=== PATIENT | male | born 1990 | race African-American/Black ===

== ENCOUNTER 2018-06-10 21:24 | Emergency (ER) | payer OTHER ==
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
[2018-06-10] MEDS ORDERED: Ketorolac 30 MG/ML SDV IVPUSH SCH (23:30)
--- NOTE | 2018-06-11 07:03 | CR ---
Chest: Frontal view of the chest was obtained and supine projection. Heart size and mediastinum are normal. Lungs are clear. Bony structures are grossly intact. Impression: 1. Nothing acute is appreciated on supine chest x-ray. Diagnostic code #1
--- NOTE | 2018-06-11 08:51 | CT ---
CT cervical spine Technique: Multiple axial sections were obtained from above C1 inferiorly to the mid to lower T2 level. Reconstructed sagittal and coronal images were reviewed. Comparison: No prior cervical spine imaging is available. Findings: Vertebral body heights and disc spaces are maintained. Vertebral bodies and posterior arches are intact with no fracture being seen. No bony central or bony neural foraminal stenosis is seen. Scoliosis and kyphosis are present. Impression: 1. Kyphosis and scoliosis. Please correlate if patient has spasm. 2. No acute bony abnormality is identified. Diagnostic code #3 I agree with preliminary report issued by [facility] ([facility] report finalized on 06/11/18, 12:28 AM Central Time)
== END 2018-06-10 23:54 | disposition home or self-care (01) ==
LOC: JD.ED 21:24
DX: S16.1XXA Strain of muscle, fascia and tendon at neck level, initial encounter (principal); V47.5XXA Car driver injured in collision with fixed or stationary object in traffic accident, initial encounter
CPT/HCPCS: 36415; 71045; 72125; 80306; 85025; 96374; 99285; G0480; J1885

== ENCOUNTER 2018-06-13 10:31 | Emergency (ER) | payer OTHER ==
[2018-06-13] MEDS ORDERED: Ondansetron 4 MG/2 ML SDV IVPUSH ONE (11:01)
[2018-06-13] MEDS ORDERED: Sodium Chloride 0.9% 10 ML Syringe FLUSH PRN ×2 (11:01→12:42)
[2018-06-13] MEDS ORDERED: Sodium Chloride 0.9% 1,000 ML IV STA (11:01)
[2018-06-13] MEDS ORDERED: Diatrizoate Meglumine/Diatrizoate Sodium 37% 120 ML Bottle PO ONE (12:42)
[2018-06-13] MEDS ORDERED: Iopamidol 612 MG/ML 150 ML Bottle IVPUSH ONE (12:42)
--- NOTE | 2018-06-13 13:02 | EDM.PDOC ---
ED HPI GENERAL MEDICAL PROBLEM - General Chief Complaint: Gastrointestinal Problem Stated Complaint: NAUSEA/WEAKNESS Time Seen by Provider: 06/13/18 10:46 Source of Information: Reports: Patient History Limitations: Reports: No Limitations - History of Present Illness INITIAL COMMENTS - FREE TEXT/NARRATIVE: The patient presents with nausea, decreased appetite and abdominal pain. This has been going on for over a month. He has lost weight. He has never vomited but he is nauseated. He has no appetite and because of the nausea he cannot eat. He has no fever, chills, cough, chest pain, shortness of breath, dysuria or hematura. He has no diarrhea. He still has a gallbladder and appendix. He did not eat any bad food and he was not around anyone who is sick. Onset: Gradual Duration: Week(s): (4) Location: Reports: Abdomen Quality: Reports: Sharp Severity: Moderate Improves with: Reports: None Worsens with: Reports: None Associated Symptoms: Reports: Nausea/Vomiting. Denies: Chest Pain, Cough, Fever /Chills, Headaches, Shortness of Breath Epigastric Pain Score (Numeric/FACES): 8 - Related Data Allergies Allergy/AdvReac Type Severity Reaction Status Date / Time No Known Allergies Allergy Verified 06/13/18 10:46 Home Meds: Home Meds Ondansetron [Zofran ODT] 4 mg PO Q6H PRN #20 tab.dis 06/13/18 [Rx] Past Medical History - Past Health History Medical/Surgical History: Denies Medical/Surgical History Social & Family History - Tobacco Use Smoking Status *Q: Never Smoker - Caffeine Use Caffeine Use: Reports: None - Recreational Drug Use Recreational Drug Use: No ED ROS GENERAL - Review of Systems Review Of Systems: See Below Constitutional: Reports: No Symptoms HEENT: Reports: No Symptoms Respiratory: Reports: No Symptoms Cardiovascular: Reports: No Symptoms Endocrine: Reports: No Symptoms GI/Abdominal: Reports: Abdominal Pain, Nausea. Denies: Diarrhea, Vomiting : Reports: No Symptoms Musculoskeletal: Reports: No Symptoms Skin: Reports: No Symptoms ED EXAM, GI/ABD - Physical Exam Exam: See Below Exam Limited By: No Limitations General Appearance: Alert, No Apparent Distress Ears: Normal External Exam Nose: Normal Inspection Head: Atraumatic, Normocephalic Neck: Normal Inspection Respiratory/Chest: No Respiratory Distress, Lungs Clear, Normal Breath Sounds Cardiovascular: Regular Rate, Rhythm, No Edema, No Murmur GI/Abdominal Exam: Soft, No Organomegaly, No Mass, Tender (Mild to moderate pain to the mid abdomen) Course - Vital Signs Last Recorded V/S: Last Vital Signs Temp 97.1 F 06/13/18 10:41 Pulse 90 06/13/18 10:41 Resp 16 06/13/18 10:41 BP 121/90 06/13/18 10:41 Pulse Ox 100 06/13/18 10:41 - Orders/Labs/Meds Orders: Active Orders 24 hr Category Date Time Status Peripheral IV Care [RC] . DIRECTED Care 06/13/18 11:02 Active Abdomen Pelvis w Cont [CT] Stat Exams 06/13/18 11:01 Taken UA W/MICROSCOPIC [URIN] Stat Lab 06/13/18 11:01 Stop Req Sodium Chloride 0.9% [Saline Flush] Med 06/13/18 11:01 Active 10 ml FLUSH ASDIRECTED PRN Sodium Chloride 0.9% [Saline Flush] Med 06/13/18 12:42 Active 10 ml FLUSH ONETIME PRN ED Antiemetic Medication Reflex [OM.PC] Stat Oth 06/13/18 11:02 Ordered Peripheral IV Insertion Adult [OM.PC] Stat Oth 06/13/18 11:01 Ordered Medication Orders Sodium Chloride (Saline Flush) 10 ml FLUSH ASDIRECTED PRN PRN Reason: Keep Vein Open Last Admin: 06/13/18 11:29 Dose: 10 ml Sodium Chloride (Saline Flush) 10 ml FLUSH ONETIME PRN PRN Reason: IV FLUSH Last Admin: 06/13/18 12:53 Dose: 10 ml Labs: Laboratory Tests 06/13/18 06/13/18 Range/Units 10:52 10:52 WBC 5.52 (4.23-9.07) K/mm3 RBC 5.91 (4.63-6.08) M/mm3 Hgb 16.5 (13.7-17.5) gm/L Hct 48.5 (40.1-51.0) % MCV 82.1 (79.0-92.2) fl MCH 27.9 (25.7-32.2) pg MCHC 34.0 (32.2-35.5) g/dl RDW Std Deviation 39.0 (35.1-43.9) fL Plt Count 215 (163-337) K/mm3 MPV 9.7 (9.4-12.3) fl Neut % (Auto) 77.9 H (34.0-67.9) % Lymph % (Auto) 14.5 L (21.8-53.1) % [place] % (Auto) 7.2 (5.3-12.2) % Eos % (Auto) 0.2 L (0.8-7.0) Baso % (Auto) 0.2 (0.1-1.2) % Neut # (Auto) 4.30 (1.78-5.38) K/mm3 Lymph # (Auto) 0.80 L (1.32-3.57) K/mm3 [place] # (Auto) 0.40 (0.30-0.82) K/mm3 Eos # (Auto) 0.01 L (0.04-0.54) K/mm3 Baso # (Auto) 0.01 (0.01-0.08) K/mm3 Sodium 139 (136-145) mEq/L Potassium 3.8 (3.5-5.1) mEq/L Chloride 102 (98-107) mEq/L Carbon Dioxide 21 (21-32) mEq/L Anion Gap 19.8 H (5-15) BUN 20 H (7-18) mg/dL Creatinine 1.6 H (0.7-1.3) mg/dL Est Cr Clr Drug Dosing 75.17 mL/min Estimated GFR (MDRD) > 60 (>60) mL/min BUN/Creatinine Ratio 12.5 L (14-18) Glucose 91 (74-106) mg/dL Calcium 9.7 (8.5-10.1) mg/dL Total Bilirubin 1.2 H (0.2-1.0) mg/dL AST 21 (15-37) U/L ALT 29 (16-63) U/L Alkaline Phosphatase 72 (46-116) U/L Total Protein 8.7 H (6.4-8.2) g/dl Albumin 4.5 (3.4-5.0) g/dl Globulin 4.2 gm/dL Albumin/Globulin Ratio 1.1 (1-2) Lipase 84 (73-393) U/L Meds: Medications Generic Name Dose Route Start Last Admin Trade Name Darrel PRN Reason Stop Dose Admin Sodium Chloride 10 ml 06/13/18 11:01 06/13/18 11:29 Saline Flush FLUSH 10 ml ASDIRECTED PRN Administration Keep Vein Open Sodium Chloride 10 ml 06/13/18 12:42 06/13/18 12:53 Saline Flush FLUSH 10 ml ONETIME PRN Administration IV FLUSH Discontinued Medications Generic Name Dose Route Start Last Admin Trade Name Darrel PRN Reason Stop Dose Admin Diatrizoate Meglum/Diatrizoate Sod 120 ml 06/13/18 12:42 06/13/18 12:53 Gastrografin 37% PO 06/13/18 12:43 90 ml ONETIME ONE Administration Sodium Chloride 1,000 mls @ 1,000 mls/hr 06/13/18 11:01 06/13/18 11:20 Normal Saline IV 06/13/18 12:00 1,000 mls/hr .BOLUS STA Administration Iopamidol 150 ml 06/13/18 12:42 06/13/18 12:53 Isovue-300 (61%) IVPUSH 06/13/18 12:43 150 ml ONETIME ONE Administration Ondansetron HCl 4 mg 06/13/18 11:01 06/13/18 11:15 Zofran IVPUSH 06/13/18 11:02 4 mg ONETIME ONE Administration - Re-Assessments/Exams Free Text/Narrative Re-Assessment/Exam: 06/13/18 13:03 I ordered an IV NS 1L bolus, zofran 4mg IV, labs, UA and a CT of his abdomen and pelvis. 06/13/18 14:26 His CBC looks good. His creatinine was elevated at 1.6 along with his BUN of 20. His total bili was a little elevated at 1.2. His CT shows nothing acute. He feels a little better. I will get him some zofran and follow up with Anh Agrawal. Departure - Departure Time of Disposition: 14:30 Disposition: Home, Self-Care 01 Condition: Good Clinical Impression: Abdominal pain, Nausea - Discharge Information *PRESCRIPTION DRUG MONITORING PROGRAM REVIEWED*: Not Applicable *COPY OF PRESCRIPTION DRUG MONITORING REPORT IN PATIENT ELLIOTT: Not Applicable Prescriptions: Ondansetron [Zofran ODT] 4 mg PO Q6H PRN #20 tab.dis PRN Reason: Nausea\vomiting Referrals: PCP,None [Primary Care Provider] - Anh Agrawal PA [Physician Reel Cart Operator] - 1 Week Forms: ED Department Discharge Additional Instructions: Take zofran every 6 hours as needed for nausea and vomiting. Drink plenty of fluids. Follow up with Anh Agrawal if you are not better next week. Please return if you are worse. - My Orders Last 24 Hours: My Active Orders 06/13/18 11:01 Abdomen Pelvis w Cont [CT] Stat UA W/MICROSCOPIC [URIN] Stat Sodium Chloride 0.9% [Saline Flush] 10 ml FLUSH ASDIRECTED PRN Peripheral IV Insertion Adult [OM.PC] Stat 06/13/18 11:02 Peripheral IV Care [RC] . DIRECTED ED Antiemetic Medication Reflex [OM.PC] Stat 06/13/18 12:42 Sodium Chloride 0.9% [Saline Flush] 10 ml FLUSH ONETIME PRN - Assessment/Plan Last 24 Hours: My Active Orders 06/13/18 11:01 Abdomen Pelvis w Cont [CT] Stat UA W/MICROSCOPIC [URIN] Stat Sodium Chloride 0.9% [Saline Flush] 10 ml FLUSH ASDIRECTED PRN Peripheral IV Insertion Adult [OM.PC] Stat 06/13/18 11:02 Peripheral IV Care [RC] . DIRECTED ED Antiemetic Medication Reflex [OM.PC] Stat 06/13/18 12:42 Sodium Chloride 0.9% [Saline Flush] 10 ml FLUSH ONETIME PRN
--- NOTE | 2018-06-14 11:02 | CT ---
CT abdomen and pelvis Technique: Multiple axial sections were obtained from above the dome of the diaphragm inferiorly through the pubic symphysis. Delayed images were also obtained through the abdomen and pelvis. Intravenous and oral contrast was utilized. Comparison: No prior abdominal imaging. Findings: Visualized lung bases show nothing acute. Liver shows no focal parenchymal abnormality. Spleen appears within normal limits. Adrenal glands contain no nodule. Kidneys show symmetric contrast enhancement. Delayed images show contrast within the ureters and bladder. No ureteral obstruction is seen. Gallbladder contains no calcified gallstones. Pancreas is within normal limits. Aorta shows no aneurysmal dilatation. No retroperitoneal adenopathy is seen. No pelvic mass or adenopathy is noted. No free fluid or inflammatory change is seen. Appendix is seen which is normal in size. Bone window settings were reviewed which appear within normal limits for the patient's age. Impression: 1. Normal findings as noted above. Nothing acute is seen on CT study of the abdomen and pelvis. Diagnostic code #1 I agree with preliminary report issued by [facility] ([facility] report finalized on 06/13/18, 2:52 PM Central Time)
== END 2018-06-13 14:45 | disposition home or self-care (01) ==
LOC: JD.ED 10:31
DX: R11.2 Nausea with vomiting, unspecified (principal); R10.9 Unspecified abdominal pain
CPT/HCPCS: 36415; 74177; 80053; 83690; 85025; 96361; 96374; 99284; J2405; J7040; J7050; Q9963; Q9967